=== PATIENT | female | born 1965 | race Two or more races ===

== ENCOUNTER 2023-01-08 07:15 | Emergency (ER) | payer OTHER ==
[~2023-01-08] VITALS: Ht 152.4 cm; Wt 73.9 kg
[2023-01-08] MEDS ORDERED: ENBREL25 MG/0.5 SQ (07:40)
== END 2023-01-08 09:35 | disposition home or self-care (01) ==
LOC: ER 07:15 → EDBD 07:32 → ER 07:32
DX: U07.1 COVID-19 (principal)